=== PATIENT | male | born 1935 | race Caucasian/White ===

== ENCOUNTER 2021-08-11 17:31 | Inpatient (IN) | payer MEDICARE, OTHER ==
[2021-08-11 20:30] VITALS: BMI 45.1
[2021-08-11] MEDS ORDERED: HYDROcodone/Acetaminophen 7.5/325 mg Tablet PO PRN (22:19)
[2021-08-11] MEDS ORDERED: HYDROcodone/Acetaminophen 5/325 mg Tablet PO PRN (22:19)
[2021-08-11] MEDS ORDERED: Ondansetron PF 4 MG/2 ML Vial IVP PRN (22:19)
[2021-08-11] MEDS ORDERED: Acetaminophen 325 MG TAB PO PRN (22:19)
[2021-08-11] MEDS ORDERED: FLU VACC QS2021-22(65YR UP)/PF 240 MCG/0.7 ML SYRINGE IM ONE (22:45)
[2021-08-11 23:28] LABS: Band 1 % (5-11); Eosinophils 1 % (0-10); Hemoglobin 16.1 g/dL (14.0-18.0); Lymphocytes 10 % (21-51); MDiff Complete? YES; Mean Corpuscular HGB CONC 32.8 g/dL (32.0-36.0); Mean Corpuscular Hemoglobin 29.6 pg (27.0-31.0); Mean Corpuscular Volume 90.2 fL (78.0-98.0); Mean Platelet Volume 8.4 fL (7.4-10.4); Monocytes 5 % (0-10); Neutrophil 82 % (42-75); Platelet Count 256 thou/uL (130-400); Platelet Morphology Comment Appears Adequate; RBC Distribution Width 13.9 % (11.5-14.5); RBC Morphology Normal; Reactive Lymphocytes 1 % (0-10); Red Blood Cell (RBC) Count 5.44 mill/uL (4.70-6.10); White Blood Cell (WBC) Count 20.3 thou/uL (4.8-10.8)
[2021-08-11 23:29] LABS: AST (SGOT) 34 U/L (5-34); Albumin 2.6 g/dL (3.4-4.8); Anion Gap 18 mmol/L (10-20); BUN (Urea Nitrogen) 52 mg/dL (8.4-25.7); Bilirubin, Total 1.4 mg/dL (0.2-1.2); Calc. Creatinine Clearance 51 mL/min (70-130); Calcium 8.3 mg/dL (7.8-10.44); Carbon Dioxide 22 mmol/L (23-31); Chloride 102 mmol/L (98-107); Globulin 3.7 g/dL (2.4-3.5); Glucose 178 mg/dL (83-110); Potassium 4.1 mmol/L (3.5-5.1); Protein, Total 6.3 g/dL (5.8-8.1); Sodium 138 mmol/L (136-145)
[2021-08-11 23:37] LABS: Alkaline Phosphatase 99 U/L (40-110)
[2021-08-11 23:40] LABS: ALT (SGPT) 23 U/L (8-55)
[2021-08-12] MEDS ORDERED: hydrOXYzine 25 MG TAB PO PRN (02:23)
[2021-08-12] MEDS ORDERED: Furosemide 20 MG/2 ML VIAL SLOW IVP SCH (02:30)
[2021-08-12] MEDS ORDERED: Dextrose 5% in Water 1,000 ML IV PRN (02:33)
[2021-08-12] MEDS ORDERED: Dextrose 50% Abboject 50 ML SYRINGE SLOW IVP PRN (02:33)
[2021-08-12] MEDS ORDERED: HumaLOG 300 UNITS/3 ML VIAL SC PRN (02:33)
[2021-08-12] MEDS ORDERED: Vancomycin 1.5 GRAM/300 ML BAG 1.5 GM in Premix Bag 1 BAG IVPB SCH (03:00)
[2021-08-12] MEDS: Cefepime 2 GM in Sodium Chloride 0.9% 100 ML IVPB SCH ×2 (04:54→17:16)
[2021-08-12 05:01] LABS: #Eosinphils 0.1 thou/uL (0.0-0.7); #Lymphocytes 1.6 thou/uL (1.20-3.40); #Monocytes 1.3 thou/uL (0.11-0.59); #Neutrophils 15.2 thou/uL (1.40-6.50); %Basophils 0.3 % (0.0-1.0); %Eosinophils 0.8 % (0.0-10.0); %Lymphocytes 8.7 % (21.0-51.0); %Monocytes 7.2 % (0.0-10.0); Hemoglobin 14.9 g/dL (14.0-18.0); Mean Corpuscular HGB CONC 31.9 g/dL (32.0-36.0); Mean Corpuscular Hemoglobin 28.9 pg (27.0-31.0); Mean Corpuscular Volume 90.8 fL (78.0-98.0); Mean Platelet Volume 8.4 fL (7.4-10.4); Platelet Count 269 thou/uL (130-400); Red Blood Cell (RBC) Count 5.15 mill/uL (4.70-6.10); White Blood Cell (WBC) Count 18.3 thou/uL (4.8-10.8)
[2021-08-12 05:26] LABS: Hemoglobin A1c 8.2 % (4.0-6.0)
[2021-08-12 05:33] LABS: ALT (SGPT) 21 U/L (8-55); AST (SGOT) 27 U/L (5-34); Albumin 2.6 g/dL (3.4-4.8); Alkaline Phosphatase 86 U/L (40-110); Anion Gap 16 mmol/L (10-20); BUN (Urea Nitrogen) 54 mg/dL (8.4-25.7); Bilirubin, Total 1.4 mg/dL (0.2-1.2); Calc. Creatinine Clearance 53 mL/min (70-130); Calcium 8.4 mg/dL (7.8-10.44); Carbon Dioxide 25 mmol/L (23-31); Cardiac Risk 6.9 (Less than 4.5); Chloride 102 mmol/L (98-107); Cholesterol 124 mg/dl (< 200 Desired); Globulin 3.2 g/dL (2.4-3.5); Glucose 155 mg/dL (83-110); HDL Cholesterol 18 mg/dL (>60 Neg Risk); LDL Cholesterol, Calculated 77 mg/dL; Potassium 3.7 mmol/L (3.5-5.1); Protein, Total 5.8 g/dL (5.8-8.1); Sodium 139 mmol/L (136-145); Triglycerides 146 mg/dL (Less than 150)
[2021-08-12] MEDS ORDERED: Famotidine/PF 20 mg/2ml Vial SLOW IVP SCH (09:00)
[2021-08-12] MEDS: Heparin 5,000 UNITS/ML VIAL SC SCH ×2 (10:23→20:13)
[2021-08-12] MEDS: Potassium Chloride 20 MEQ TAB PO SCH (10:24)
[2021-08-12] MEDS: Furosemide 20 MG TAB PO SCH (10:24)
[2021-08-12] MEDS: Ascorbic Acid 500 mg Chewable Tablet PO SCH (10:24)
[2021-08-12] MEDS: Aspirin Chewable 81 MG TAB PO SCH (10:24)
[2021-08-12] MEDS: Famotidine/PF 20 mg/2ml Vial SLOW IVP SCH (10:24)
[2021-08-12] MEDS: Boudreaux's Butt Paste 60 GM TUBE TOP SCH ×4 (10:25→20:18)
[2021-08-12 12:12] LABS: SARS-CoV-2 PCR by NAA Not Detected (NotDetected)
[2021-08-13] MEDS ORDERED: Vancomycin 1 GM in Premix Bag 1 BAG IVPB SCH (03:00)
[2021-08-13] MEDS: Cefepime 2 GM in Sodium Chloride 0.9% 100 ML IVPB SCH ×2 (04:08→17:19)
[2021-08-13 04:53] LABS: #Eosinphils 0.4 thou/uL (0.0-0.7); #Lymphocytes 1.7 thou/uL (1.20-3.40); #Monocytes 1.1 thou/uL (0.11-0.59); #Neutrophils 13.2 thou/uL (1.40-6.50); %Basophils 0.2 % (0.0-1.0); %Eosinophils 2.6 % (0.0-10.0); %Lymphocytes 10.3 % (21.0-51.0); %Monocytes 6.9 % (0.0-10.0); %Neutrophils 79.9 % (42.0-75.0); Hemoglobin 14.3 g/dL (14.0-18.0); Mean Corpuscular HGB CONC 31.6 g/dL (32.0-36.0); Mean Corpuscular Hemoglobin 28.7 pg (27.0-31.0); Mean Corpuscular Volume 90.9 fL (78.0-98.0); Mean Platelet Volume 8.2 fL (7.4-10.4); Platelet Count 265 thou/uL (130-400); RBC Distribution Width 13.8 % (11.5-14.5); Red Blood Cell (RBC) Count 4.97 mill/uL (4.70-6.10); White Blood Cell (WBC) Count 16.5 thou/uL (4.8-10.8)
[2021-08-13 05:15] LABS: Vancomycin, Random 12.8 ug/mL (See Comment)
[2021-08-13 05:20] LABS: ALT (SGPT) 18 U/L (8-55); AST (SGOT) 26 U/L (5-34); Albumin 2.6 g/dL (3.4-4.8); Alkaline Phosphatase 87 U/L (40-110); Anion Gap 16 mmol/L (10-20); BUN (Urea Nitrogen) 55 mg/dL (8.4-25.7); Bilirubin, Total 0.9 mg/dL (0.2-1.2); Calc. Creatinine Clearance 55 mL/min (70-130); Calcium 8.4 mg/dL (7.8-10.44); Carbon Dioxide 24 mmol/L (23-31); Chloride 102 mmol/L (98-107); Globulin 3.2 g/dL (2.4-3.5); Glucose 136 mg/dL (83-110); Potassium 3.7 mmol/L (3.5-5.1); Protein, Total 5.8 g/dL (5.8-8.1); Sodium 138 mmol/L (136-145)
[2021-08-13] MEDS: Heparin 5,000 UNITS/ML VIAL SC SCH ×2 (09:29→20:42)
[2021-08-13] MEDS: Aspirin Chewable 81 MG TAB PO SCH (09:29)
[2021-08-13] MEDS: Famotidine/PF 20 mg/2ml Vial SLOW IVP SCH (09:29)
[2021-08-13] MEDS: Ascorbic Acid 500 mg Chewable Tablet PO SCH (09:29)
[2021-08-13] MEDS: Furosemide 20 MG TAB PO SCH (09:29)
[2021-08-13] MEDS: Potassium Chloride 20 MEQ TAB PO SCH (09:29)
[2021-08-13] MEDS: Boudreaux's Butt Paste 60 GM TUBE TOP SCH ×4 (09:29→20:42)
[2021-08-13] MEDS ORDERED: VANCOMYCIN 1.25 GM/250 ML BAG 1.25 GM in Premix Bag 1 BAG IVPB SCH (12:00)
[2021-08-14] MEDS: Cefepime 2 GM in Sodium Chloride 0.9% 100 ML IVPB SCH ×3 (04:05→16:56)
[2021-08-14 05:08] LABS: #Basophils 0.1 thou/uL (0.0-0.2); #Eosinphils 0.5 thou/uL (0.0-0.7); #Lymphocytes 1.6 thou/uL (1.20-3.40); #Monocytes 0.9 thou/uL (0.11-0.59); #Neutrophils 10.6 thou/uL (1.40-6.50); %Basophils 0.4 % (0.0-1.0); %Eosinophils 3.6 % (0.0-10.0); %Lymphocytes 11.5 % (21.0-51.0); %Monocytes 6.8 % (0.0-10.0); %Neutrophils 77.7 % (42.0-75.0); Hemoglobin 13.7 g/dL (14.0-18.0); Mean Corpuscular HGB CONC 31.7 g/dL (32.0-36.0); Mean Corpuscular Hemoglobin 28.6 pg (27.0-31.0); Mean Corpuscular Volume 90.3 fL (78.0-98.0); Mean Platelet Volume 8.1 fL (7.4-10.4); Platelet Count 266 thou/uL (130-400); RBC Distribution Width 13.8 % (11.5-14.5); Red Blood Cell (RBC) Count 4.77 mill/uL (4.70-6.10); White Blood Cell (WBC) Count 13.6 thou/uL (4.8-10.8)
[2021-08-14 05:26] LABS: Anion Gap 13 mmol/L (10-20); BUN (Urea Nitrogen) 48 mg/dL (8.4-25.7); Calc. Creatinine Clearance 64 mL/min (70-130); Calcium 8.1 mg/dL (7.8-10.44); Carbon Dioxide 24 mmol/L (23-31); Chloride 109 mmol/L (98-107); Glucose 139 mg/dL (83-110); Potassium 3.1 mmol/L (3.5-5.1); Sodium 143 mmol/L (136-145)
[2021-08-14] MEDS: Boudreaux's Butt Paste 60 GM TUBE TOP SCH ×4 (08:00→20:33)
[2021-08-14] MEDS: Potassium Chloride 20 MEQ TAB PO SCH (09:59)
[2021-08-14] MEDS: Aspirin Chewable 81 MG TAB PO SCH (09:59)
[2021-08-14] MEDS: Ascorbic Acid 500 mg Chewable Tablet PO SCH (09:59)
[2021-08-14] MEDS: Furosemide 20 MG TAB PO SCH (09:59)
[2021-08-14] MEDS: Heparin 5,000 UNITS/ML VIAL SC SCH ×2 (09:59→20:33)
[2021-08-14] MEDS: Famotidine/PF 20 mg/2ml Vial SLOW IVP SCH (09:59)
[2021-08-14 12:34] LABS: Vancomycin, Random 14.8 ug/mL (See Comment)
[2021-08-14] MEDS ORDERED: Vancomycin 1 GM in Premix Bag 1 BAG IVPB SCH ×2 (15:30→18:00)
[2021-08-15 04:49] LABS: #Eosinphils 0.5 thou/uL (0.0-0.7); #Lymphocytes 1.6 thou/uL (1.20-3.40); #Monocytes 0.9 thou/uL (0.11-0.59); #Neutrophils 8.2 thou/uL (1.40-6.50); %Basophils 0.3 % (0.0-1.0); %Eosinophils 4.5 % (0.0-10.0); %Monocytes 8.2 % (0.0-10.0); %Neutrophils 72.9 % (42.0-75.0); Mean Corpuscular HGB CONC 33.3 g/dL (32.0-36.0); Mean Corpuscular Volume 90.1 fL (78.0-98.0); Mean Platelet Volume 8.1 fL (7.4-10.4); Platelet Count 318 thou/uL (130-400); RBC Distribution Width 13.8 % (11.5-14.5); Red Blood Cell (RBC) Count 5.02 mill/uL (4.70-6.10); White Blood Cell (WBC) Count 11.2 thou/uL (4.8-10.8)
[2021-08-15] MEDS: Cefepime 2 GM in Sodium Chloride 0.9% 100 ML IVPB SCH ×2 (05:00→17:05)
[2021-08-15 05:06] LABS: Anion Gap 14 mmol/L (10-20); BUN (Urea Nitrogen) 41 mg/dL (8.4-25.7); Calc. Creatinine Clearance 72 mL/min (70-130); Calcium 8.7 mg/dL (7.8-10.44); Carbon Dioxide 23 mmol/L (23-31); Chloride 109 mmol/L (98-107); Glucose 132 mg/dL (83-110); Sodium 143 mmol/L (136-145)
[2021-08-15 05:10] LABS: Potassium 2.9 mmol/L (3.5-5.1)
[2021-08-15] MEDS ORDERED: Potassium Chloride 20 MEQ TAB PO SCH ×2 (05:30→19:30)
[2021-08-15 05:44] LABS: Magnesium 1.9 mg/dL (1.6-2.6)
[2021-08-15] MEDS ORDERED: Electrolyte Replacement Protocol 1 EACH FS SCH (08:00)
[2021-08-15] MEDS ORDERED: Magnesium 2 GM/50 ML 2 GM in Premix Bag 1 BAG IVPB SCH (08:15)
[2021-08-15] MEDS: Aspirin Chewable 81 MG TAB PO SCH (09:33)
[2021-08-15] MEDS: Ascorbic Acid 500 mg Chewable Tablet PO SCH (09:33)
[2021-08-15] MEDS: Furosemide 20 MG TAB PO SCH (09:33)
[2021-08-15] MEDS: Potassium Chloride 20 MEQ TAB PO SCH (09:33)
[2021-08-15] MEDS: Famotidine/PF 20 mg/2ml Vial SLOW IVP SCH (09:33)
[2021-08-15] MEDS: Heparin 5,000 UNITS/ML VIAL SC SCH (09:33)
[2021-08-15] MEDS: Boudreaux's Butt Paste 60 GM TUBE TOP SCH ×4 (09:34→20:34)
[2021-08-15] MEDS: HumaLOG 300 UNITS/3 ML VIAL SC PRN (13:31)
[2021-08-15] MEDS ORDERED: Vancomycin 1 GM in Premix Bag 1 BAG IVPB SCH (15:00)
[2021-08-15 16:56] LABS: Potassium 3.3 mmol/L (3.5-5.1)
[2021-08-15] MEDS: Vancomycin 1 GM in Premix Bag 1 BAG IVPB SCH (17:47)
[2021-08-15] MEDS: Enoxaparin Sodium 40 MG/0.4 ML SYRINGE SC SCH (20:32)
[2021-08-16] MEDS: Cefepime 2 GM in Sodium Chloride 0.9% 100 ML IVPB SCH ×2 (05:29→16:40)
[2021-08-16 05:36] LABS: #Eosinphils 0.5 thou/uL (0.0-0.7); #Lymphocytes 1.7 thou/uL (1.20-3.40); #Monocytes 0.9 thou/uL (0.11-0.59); #Neutrophils 7.8 thou/uL (1.40-6.50); %Basophils 0.1 % (0.0-1.0); %Eosinophils 4.5 % (0.0-10.0); %Lymphocytes 15.3 % (21.0-51.0); %Monocytes 7.9 % (0.0-10.0); %Neutrophils 72.2 % (42.0-75.0); Hemoglobin 14.9 g/dL (14.0-18.0); Mean Corpuscular HGB CONC 31.4 g/dL (32.0-36.0); Mean Corpuscular Hemoglobin 28.5 pg (27.0-31.0); Mean Corpuscular Volume 90.7 fL (78.0-98.0); Mean Platelet Volume 8.1 fL (7.4-10.4); Platelet Count 320 thou/uL (130-400); RBC Distribution Width 14.2 % (11.5-14.5); Red Blood Cell (RBC) Count 5.25 mill/uL (4.70-6.10); White Blood Cell (WBC) Count 10.8 thou/uL (4.8-10.8)
[2021-08-16 05:50] LABS: Phosphorus 2.8 mg/dL (2.3-4.7)
[2021-08-16 05:53] LABS: Anion Gap 16 mmol/L (10-20); BUN (Urea Nitrogen) 36 mg/dL (8.4-25.7); Calc. Creatinine Clearance 74 mL/min (70-130); Calcium 8.2 mg/dL (7.8-10.44); Carbon Dioxide 21 mmol/L (23-31); Chloride 111 mmol/L (98-107); Glucose 130 mg/dL (83-110); Magnesium 2.1 mg/dL (1.6-2.6); Potassium 3.5 mmol/L (3.5-5.1); Sodium 144 mmol/L (136-145)
[2021-08-16] MEDS ORDERED: Potassium Chloride 20 MEQ TAB PO SCH (06:30)
[2021-08-16] MEDS ORDERED: Furosemide 40 MG TAB PO SCH (07:30)
[2021-08-16] MEDS: Ascorbic Acid 500 mg Chewable Tablet PO SCH (09:56)
[2021-08-16] MEDS: Aspirin Chewable 81 MG TAB PO SCH (09:56)
[2021-08-16] MEDS: Potassium Chloride 20 MEQ TAB PO SCH (09:56)
[2021-08-16] MEDS: Furosemide 20 MG TAB PO SCH (09:56)
[2021-08-16] MEDS: Boudreaux's Butt Paste 60 GM TUBE TOP SCH ×4 (09:57→23:27)
[2021-08-16 17:38] LABS: Vancomycin, Trough 16.6 ug/mL
[2021-08-16] MEDS: Vancomycin 1 GM in Premix Bag 1 BAG IVPB SCH ×2 (18:19→19:14)
[2021-08-16] MEDS: HumaLOG 300 UNITS/3 ML VIAL SC PRN (18:22)
[2021-08-16] MEDS: Enoxaparin Sodium 40 MG/0.4 ML SYRINGE SC SCH (23:26)
[2021-08-17] MEDS: Cefepime 2 GM in Sodium Chloride 0.9% 100 ML IVPB SCH (05:20)
[2021-08-17] MEDS: Ascorbic Acid 500 mg Chewable Tablet PO SCH (08:03)
[2021-08-17] MEDS: Potassium Chloride 20 MEQ TAB PO SCH (08:03)
[2021-08-17] MEDS: Aspirin Chewable 81 MG TAB PO SCH (08:03)
[2021-08-17] MEDS: Furosemide 20 MG TAB PO SCH (08:03)
[2021-08-17] MEDS: Boudreaux's Butt Paste 60 GM TUBE TOP SCH ×2 (08:03→14:50)
[2021-08-17] MEDS: HumaLOG 300 UNITS/3 ML VIAL SC PRN (12:06)
[2021-08-17 15:24] VITALS: BP 119/76; TEMP 97.7
== END 2021-08-17 16:46 | disposition home health service (06) | DRG 872 ==
LOC: 2NO 17:31
PROVIDERS: ADMIT Internal Medicine; ATTEND Internal Medicine
DX: A41.9 Sepsis, unspecified organism (principal); L03.311 Cellulitis of abdominal wall; N39.0 Urinary tract infection, site not specified; N17.9 Acute kidney failure, unspecified; I50.32 Chronic diastolic (congestive) heart failure; Z68.42 Body mass index [BMI] 45.0-49.9, adult; R18.8 Other ascites; I13.0 Hypertensive heart and chronic kidney disease with heart failure and stage 1 through stage 4 chronic kidney disease, or unspecified chronic kidney disease; I48.20 Chronic atrial fibrillation, unspecified; R65.20 Severe sepsis without septic shock; E11.22 Type 2 diabetes mellitus with diabetic chronic kidney disease; K43.2 Incisional hernia without obstruction or gangrene; E66.01 Morbid (severe) obesity due to excess calories; I25.5 Ischemic cardiomyopathy; E11.65 Type 2 diabetes mellitus with hyperglycemia; I25.10 Atherosclerotic heart disease of native coronary artery without angina pectoris; K59.00 Constipation, unspecified; I07.1 Rheumatic tricuspid insufficiency; Z20.822 Contact with and (suspected) exposure to COVID-19; N18.30 Chronic kidney disease, stage 3 unspecified; E78.5 Hyperlipidemia, unspecified; E87.6 Hypokalemia; E83.42 Hypomagnesemia; Z86.73 Personal history of transient ischemic attack (TIA), and cerebral infarction without residual deficits
CPT/HCPCS: 36415; 36416; 71045; 74018; 76705; 80048; 80053; 80061; 80202; 83036; 83605; 83735; 84100; 85025; 87040; 87324; 87449; 93306; J0692; J1644; J1650; J1815; J3370; J3475; J3490; S0028; U0003; U0005

== ENCOUNTER 2021-08-22 10:32 | Inpatient (IN) | payer MEDICARE, OTHER ==
[2021-08-22 11:33] LABS: Mean Corpuscular HGB CONC 32.6 g/dL (32.0-36.0); Mean Corpuscular Hemoglobin 29.4 pg (27.0-31.0); Mean Corpuscular Volume 90.3 fL (78.0-98.0); RBC Distribution Width 15.6 % (11.5-14.5)
[2021-08-22 11:50] LABS: Actual Bicarbonate (HCO3a) 13.2 mEq/L (22-28); Analyzer IN Cardio ER; Base Excess (BEa) -10.2 mEq/L (-2.0 to +3.0); Carboxyhemoglobin (COHb) 0.4 gm% (0.0-3.0); Hemoglobin (Hb) 13.1 g/dL (14.0-18.0); Potassium - ABG Lab 2.88 mmol/L (3.70-5.30); pH, Arterial 7.37 (7.35-7.45)
[2021-08-22 11:54] LABS: ALV-art Gradient 141.055 mmHg (0-20); CO2 Tension 23.7 mmHg (35.0-45.0); Puncture Site RRA
[2021-08-22 11:55] LABS: Anisocytosis SLIGHT = 6-15 cells (100X) (0-5/hpf); Band 17 % (5-11); Lymphocytes 6 % (21-51); MDiff Complete? YES; Mean Platelet Volume 10.2 fL (7.4-10.4); Monocytes 4 % (0-10); Neutrophil 73 % (42-75); Platelet Count 285 thou/uL (130-400); Platelet Morphology Comment Appears Adequate; White Blood Cell (WBC) Count 18.3 thou/uL (4.8-10.8)
[2021-08-22 12:14] LABS: CKMB 1.4 ng/mL (0-6.6)
[2021-08-22] MEDS ORDERED: Cefepime 2 GM VIAL ONE (12:28)
[2021-08-22] MEDS ORDERED: VANCOMYCIN 2 GRAM/400 ML BAG 2 GM in Premix Bag 1 BAG IVPB SCH (13:00)
[2021-08-22] MEDS ORDERED: Ondansetron PF 4 MG/2 ML Vial IVP PRN (15:21)
[2021-08-22] MEDS ORDERED: Guaifenesin DM 100-10/5 ML UDCUP PO PRN (15:21)
[2021-08-22] MEDS ORDERED: Dextrose 50% Abboject 50 ML SYRINGE SLOW IVP PRN (15:21)
[2021-08-22] MEDS ORDERED: Dextrose 5% in Water 1,000 ML IV PRN (15:21)
[2021-08-22] MEDS ORDERED: Acetaminophen 325 MG TAB PO PRN (15:21)
[2021-08-22 15:24] LABS: Lactic Acid 4.4 mmol/L (0.5-2.2)
[2021-08-22 15:45] LABS: Bilirubin Negative (Negative); Blood, Urine Negative (Negative); Clarity Clear (Clear); Glucose, Urine (Dipstick) Normal (Negative); Ketone, Urine Negative (Negative); Leukocyte 25 Leu/uL (Negative); Nitrite Negative (Negative); Protein, Urine (Dipstick) 30 mg/dL (Neg-Trace); RBC/HPF 0-3 HPF (0-3); Specific Gravity, Urine 1.022 (1.002-1.036); Squamous Epithelial 0-3 HPF (0-3); Urobilinogen Normal mg/dL (Less than 2); WBC/HPF 0-3 HPF (0-3)
[2021-08-22] MEDS ORDERED: Sodium Chloride 0.9% 1,000 ML IV SCH (15:45)
[2021-08-22 15:46] LABS: Bacteria/HPF Rare-Few HPF (None Seen)
[2021-08-22 15:54] LABS: Troponin I 0.085 ng/mL (< 0.028)
[2021-08-22 16:23] LABS: Albumin 2.3 g/dL (3.4-4.8)
[2021-08-22 16:24] LABS: Chloride 111 mmol/L (98-107); Sodium 142 mmol/L (136-145)
[2021-08-22 16:25] LABS: Calcium 7.6 mg/dL (7.8-10.44); Glucose 174 mg/dL (83-110)
[2021-08-22 16:26] LABS: Globulin 3.2 g/dL (2.4-3.5); Protein, Total 5.5 g/dL (5.8-8.1)
[2021-08-22 16:27] LABS: Anion Gap 21 mmol/L (10-20); Bilirubin, Total 1.1 mg/dL (0.2-1.2); Carbon Dioxide 13 mmol/L (23-31)
[2021-08-22 16:28] LABS: Alkaline Phosphatase 99 U/L (40-110)
[2021-08-22 16:29] LABS: Calc. Creatinine Clearance 0 mL/min (70-130)
[2021-08-22 16:30] LABS: AST (SGOT) 128 U/L (5-34); BUN (Urea Nitrogen) 90 mg/dL (8.4-25.7)
[2021-08-22 16:31] LABS: ALT (SGPT) 99 U/L (8-55); Lipase 8 U/L (8-78)
[2021-08-22] MEDS ORDERED: Norepinephrine 8 MG/0.9% NS 250 ML ONE (16:44)
[2021-08-22 18:22] LABS: Troponin I 0.116 ng/mL (< 0.028)
[2021-08-22 18:34] LABS: SARS-CoV-2 NAA Rapid Test Not Detected (NotDetected)
[2021-08-22 21:11] LABS: Lactic Acid 5.6 mmol/L (0.5-2.2)
[2021-08-22] MEDS: Sodium Chloride 0.9% 1,000 ML IV SCH (22:13)
[2021-08-22] MEDS: HumaLOG 300 UNITS/3 ML VIAL SC PRN (22:13)
[2021-08-22 23:06] LABS: Bilirubin Negative (Negative); Blood, Urine 3+ (Negative); Clarity Extra Turbid (Clear); Glucose, Urine (Dipstick) Normal (Negative); Ketone, Urine Negative (Negative); Leukocyte 250 Leu/uL (Negative); Nitrite Negative (Negative); Protein, Urine (Dipstick) 100 mg/dL (Neg-Trace); RBC/HPF Greater than 50 HPF (0-3); Specific Gravity, Urine 1.024 (1.002-1.036); Squamous Epithelial 0-3 HPF (0-3); Urobilinogen Normal mg/dL (Less than 2); pH, Urine 5.5 (5.0-9.0)
[2021-08-22 23:13] LABS: Renal Epithelial 0-3 HPF (None Seen)
[2021-08-22 23:17] LABS: Bacteria/HPF 2+ HPF (None Seen)
[2021-08-23] MEDS: Norepinephrine 8 MG/0.9% NS 250 ML IVPB SCH ×3 (01:51→13:37)
[2021-08-23 04:29] LABS: Anion Gap 26 mmol/L (10-20); BUN (Urea Nitrogen) 100 mg/dL (8.4-25.7); Calc. Creatinine Clearance 31 mL/min (70-130); Calcium 7.4 mg/dL (7.8-10.44); Chloride 114 mmol/L (98-107); Glucose 166 mg/dL (83-110); Potassium 3.7 mmol/L (3.5-5.1); Sodium 144 mmol/L (136-145)
[2021-08-23 04:34] LABS: Carbon Dioxide 8 mmol/L (23-31)
[2021-08-23 04:44] LABS: Band 41 % (5-11); Burr Cells SLIGHT = 2-5 cells (100X) (0-1/hpf); Hemoglobin 12.7 g/dL (14.0-18.0); Lymphocytes 3 % (21-51); MDiff Complete? YES; Mean Corpuscular HGB CONC 32.2 g/dL (32.0-36.0); Mean Corpuscular Hemoglobin 29.5 pg (27.0-31.0); Mean Corpuscular Volume 91.6 fL (78.0-98.0); Mean Platelet Volume 8.2 fL (7.4-10.4); Metamyelocyte 6 % (0-0); Monocytes 2 % (0-10); Neutrophil 48 % (42-75); Nucleated RBC 1 % (0); Platelet Count 386 thou/uL (130-400); Platelet Morphology Comment Appears Adequate; Polychromasia SLIGHT = 2-3 cells (100X) (0-2/hpf); RBC Distribution Width 15.5 % (11.5-14.5); Red Blood Cell (RBC) Count 4.31 mill/uL (4.70-6.10); White Blood Cell (WBC) Count 33.7 thou/uL (4.8-10.8)
[2021-08-23] MEDS ORDERED: Sodium Bicarb 50 MEQ/50 ML Abboject 8.4% SYRINGE IVP SCH (05:00)
[2021-08-23] MEDS ORDERED: MEROPENEM 1 GM/50 ML 1 GM in Premix Bag 1 BAG IVPB SCH (05:30)
[2021-08-23] MEDS: Sodium Bicarbonate 150 MEQ in Dextrose 5% in Water 1,000 ML IV SCH ×3 (05:37→20:22)
[2021-08-23] MEDS: Sodium Chloride 0.9% 1,000 ML IV SCH (07:29)
[2021-08-23] MEDS: Aspirin Chewable 81 MG TAB PO SCH (08:57)
[2021-08-23] MEDS ORDERED: Enoxaparin Sodium 40 MG/0.4 ML SYRINGE SC SCH (09:00)
[2021-08-23] MEDS ORDERED: Hydrocortisone Sod Succ/PF 250 mg/2 ml Vial SLOW IVP SCH (10:00)
[2021-08-23] MEDS ORDERED: Hydrocortisone Sod Succ/PF 100 mg/2 ml Vial IVP SCH (10:45)
[2021-08-23 11:36] LABS: Lactic Acid 4.3 mmol/L (0.5-2.2)
[2021-08-23] MEDS: Vasopressin 20 UNIT, Admixture Fee 1 EACH in Sodium Chloride 0.9% 50 ML IV SCH ×2 (11:52→17:43)
[2021-08-23] MEDS ORDERED: Cefepime 1 GM in Sodium Chloride 0.9% 100 ML IVPB SCH (12:00)
[2021-08-23] MEDS: Meropenem 500 MG in Sodium Chloride 0.9% 100 ML IVPB SCH (13:37)
[2021-08-23] MEDS: Hydrocortisone Sod Succ/PF 100 mg/2 ml Vial IVP SCH ×2 (17:10→22:13)
[2021-08-23] MEDS: Heparin 5,000 UNITS/ML VIAL SC SCH (20:24)
[2021-08-23] MEDS: HumaLOG 300 UNITS/3 ML VIAL SC PRN (22:35)
[2021-08-24] MEDS: HumaLOG 300 UNITS/3 ML VIAL SC PRN ×6 (00:08→23:56)
[2021-08-24] MEDS: Norepinephrine 8 MG/0.9% NS 250 ML IVPB SCH (00:46)
[2021-08-24] MEDS: Vasopressin 20 UNIT, Admixture Fee 1 EACH in Sodium Chloride 0.9% 50 ML IV SCH (00:48)
[2021-08-24] MEDS: Meropenem 500 MG in Sodium Chloride 0.9% 100 ML IVPB SCH ×2 (01:51→12:48)
[2021-08-24] MEDS: Hydrocortisone Sod Succ/PF 100 mg/2 ml Vial IVP SCH ×4 (03:47→21:31)
[2021-08-24] MEDS: Sodium Bicarbonate 150 MEQ in Dextrose 5% in Water 1,000 ML IV SCH ×3 (03:51→19:31)
[2021-08-24 04:33] LABS: ALT (SGPT) 56 U/L (8-55); AST (SGOT) 32 U/L (5-34); Albumin 2.1 g/dL (3.4-4.8); Alkaline Phosphatase 113 U/L (40-110); Anion Gap 22 mmol/L (10-20); BUN (Urea Nitrogen) 112 mg/dL (8.4-25.7); Band 27 % (5-11); Bilirubin, Total 1.1 mg/dL (0.2-1.2); Calc. Creatinine Clearance 32 mL/min (70-130); Calcium 7.1 mg/dL (7.8-10.44); Carbon Dioxide 22 mmol/L (23-31); Chloride 107 mmol/L (98-107); Globulin 2.6 g/dL (2.4-3.5); Glucose 354 mg/dL (83-110); Hemoglobin 11.6 g/dL (14.0-18.0); Hypochromia SLIGHT = 6-15 cells (100X) (0-5/hpf); Lymphocytes 3 % (21-51); MDiff Complete? YES; Mean Corpuscular HGB CONC 32.7 g/dL (32.0-36.0); Mean Corpuscular Hemoglobin 29.5 pg (27.0-31.0); Mean Corpuscular Volume 90.3 fL (78.0-98.0); Mean Platelet Volume 8.4 fL (7.4-10.4); Metamyelocyte 1 % (0-0); Monocytes 5 % (0-10); Neutrophil 64 % (42-75); Platelet Count 284 thou/uL (130-400); Platelet Morphology Comment Appears Adequate; Protein, Total 4.7 g/dL (5.8-8.1); RBC Distribution Width 15.3 % (11.5-14.5); Red Blood Cell (RBC) Count 3.93 mill/uL (4.70-6.10); Sodium 148 mmol/L (136-145); White Blood Cell (WBC) Count 23.9 thou/uL (4.8-10.8)
[2021-08-24 04:50] LABS: Potassium 2.8 mmol/L (3.5-5.1)
[2021-08-24] MEDS ORDERED: Potassium Chloride 40 MEQ in Premix Bag 1 BAG IVPB SCH ×2 (05:30→13:00)
[2021-08-24] MEDS: Aspirin Chewable 81 MG TAB PO SCH (07:25)
[2021-08-24 07:26] LABS: Magnesium 1.8 mg/dL (1.6-2.6)
[2021-08-24] MEDS: Heparin 5,000 UNITS/ML VIAL SC SCH ×2 (07:27→20:42)
[2021-08-24] MEDS: Albumin 25% 25 GM/100 ML BOT IVPB SCH ×3 (09:13→20:41)
[2021-08-24] MEDS ORDERED: Pantoprazole 40 MG VIAL IVP SCH (11:15)
[2021-08-24] MEDS ORDERED: Sodium Chloride 0.9% (PF) 10 ML VIAL FS PRN (11:15)
[2021-08-24] MEDS ORDERED: Magnesium 2 GM/50 ML 2 GM in Premix Bag 1 BAG IVPB SCH (11:30)
[2021-08-24] MEDS ORDERED: Magnesium Sulfate 2 GM in Sodium Chloride 0.9% 100 ML IVPB SCH (11:30)
[2021-08-24] MEDS ORDERED: Lantus 1000 UNITS/10 ML VIAL SC SCH (11:30)
[2021-08-24 11:54] LABS: Potassium 2.6 mmol/L (3.5-5.1)
[2021-08-24] MEDS ORDERED: Bacitracin 1 PK TOP PRN (12:26)
[2021-08-24] MEDS ORDERED: Electrolyte Replacement Protocol FS PRN (12:30)
[2021-08-24 12:38] LABS: Vancomycin, Random 23.2 ug/mL (See Comment)
[2021-08-24 17:51] LABS: Lactic Acid 3.4 mmol/L (0.5-2.2)
[2021-08-24 17:58] LABS: Troponin I 0.056 ng/mL (< 0.028)
[2021-08-25] MEDS: Hydrocortisone Sod Succ/PF 100 mg/2 ml Vial IVP SCH ×4 (02:54→21:24)
[2021-08-25] MEDS: Albumin 25% 25 GM/100 ML BOT IVPB SCH ×2 (03:00→07:18)
[2021-08-25] MEDS: Sodium Bicarbonate 150 MEQ in Dextrose 5% in Water 1,000 ML IV SCH (03:22)
[2021-08-25] MEDS: Meropenem 500 MG in Sodium Chloride 0.9% 100 ML IVPB SCH ×2 (03:58→12:46)
[2021-08-25 04:33] LABS: ALT (SGPT) 32 U/L (8-55); AST (SGOT) 27 U/L (5-34); Albumin 2.7 g/dL (3.4-4.8); Alkaline Phosphatase 98 U/L (40-110); Anion Gap 19 mmol/L (10-20); BUN (Urea Nitrogen) 114 mg/dL (8.4-25.7); Bilirubin, Total 1.1 mg/dL (0.2-1.2); Calc. Creatinine Clearance 36 mL/min (70-130); Calcium 7.2 mg/dL (7.8-10.44); Carbon Dioxide 31 mmol/L (23-31); Chloride 103 mmol/L (98-107); Glucose 223 mg/dL (83-110); Magnesium 2.3 mg/dL (1.6-2.6); Protein, Total 4.7 g/dL (5.8-8.1); Sodium 150 mmol/L (136-145)
[2021-08-25 04:36] LABS: Potassium 2.5 mmol/L (3.5-5.1)
[2021-08-25 04:58] LABS: Band 14 % (5-11); Hemoglobin 8.8 g/dL (14.0-18.0); Lymphocytes 8 % (21-51); MDiff Complete? YES; Mean Corpuscular HGB CONC 33.6 g/dL (32.0-36.0); Mean Corpuscular Hemoglobin 30.6 pg (27.0-31.0); Mean Corpuscular Volume 90.8 fL (78.0-98.0); Mean Platelet Volume 8.5 fL (7.4-10.4); Monocytes 5 % (0-10); Neutrophil 73 % (42-75); Platelet Count 154 thou/uL (130-400); Platelet Morphology Comment Appears Adequate; RBC Distribution Width 15.2 % (11.5-14.5); RBC Morphology Normal; Red Blood Cell (RBC) Count 2.89 mill/uL (4.70-6.10); White Blood Cell (WBC) Count 12.3 thou/uL (4.8-10.8)
[2021-08-25] MEDS ORDERED: Potassium Chloride 40 MEQ in Premix Bag 1 BAG IVPB SCH (05:30)
[2021-08-25] MEDS: HumaLOG 300 UNITS/3 ML VIAL SC PRN ×2 (05:36→07:18)
[2021-08-25] MEDS: Heparin 5,000 UNITS/ML VIAL SC SCH (07:17)
[2021-08-25] MEDS: Pantoprazole 40 MG VIAL IVP SCH (07:18)
[2021-08-25] MEDS: 1/2 NS w/KCL 20 mEq 1,000 ML IV SCH ×3 (07:45→23:32)
[2021-08-25] MEDS ORDERED: FLU VACC QS2021-22(65YR UP)/PF 240 MCG/0.7 ML SYRINGE IM ONE (09:00)
[2021-08-25] MEDS ORDERED: Lantus 1000 UNITS/10 ML VIAL SC SCH (09:00)
[2021-08-25 13:27] LABS: Vancomycin, Random 17.4 ug/mL (See Comment)
[2021-08-25] MEDS ORDERED: Vancomycin HCl 500 MG in Sodium Chloride 0.9% 100 ML IVPB SCH (14:45)
[2021-08-25] MEDS ORDERED: Sodium Chloride 0.9% 10 ML ONE (20:11)
[2021-08-25] MEDS: NPH, Human Insulin Isophane 300 UNIT/3 ML VIAL SC SCH (21:24)
[2021-08-26] MEDS: Meropenem 500 MG in Sodium Chloride 0.9% 100 ML IVPB SCH ×2 (01:37→13:47)
[2021-08-26] MEDS: Hydrocortisone Sod Succ/PF 100 mg/2 ml Vial IVP SCH ×4 (03:51→20:34)
[2021-08-26 04:33] LABS: Hemoglobin 9.5 g/dL (14.0-18.0); Mean Corpuscular HGB CONC 33.3 g/dL (32.0-36.0); Mean Corpuscular Hemoglobin 30.6 pg (27.0-31.0); Mean Corpuscular Volume 92.1 fL (78.0-98.0); Platelet Count 112 thou/uL (130-400); RBC Distribution Width 14.8 % (11.5-14.5); Red Blood Cell (RBC) Count 3.09 mill/uL (4.70-6.10); White Blood Cell (WBC) Count 12.1 thou/uL (4.8-10.8)
[2021-08-26 04:34] LABS: Band 13 % (5-11); Hypochromia SLIGHT = 6-15 cells (100X) (0-5/hpf); Lymphocytes 3 % (21-51); MDiff Complete? YES; Monocytes 12 % (0-10); Neutrophil 72 % (42-75); Platelet Morphology Comment Appears Decreased
[2021-08-26 04:39] LABS: ALT (SGPT) 30 U/L (8-55); AST (SGOT) 34 U/L (5-34); Albumin 2.8 g/dL (3.4-4.8); Alkaline Phosphatase 170 U/L (40-110); Anion Gap 17 mmol/L (10-20); BUN (Urea Nitrogen) 105 mg/dL (8.4-25.7); Calc. Creatinine Clearance 43 mL/min (70-130); Calcium 7.6 mg/dL (7.8-10.44); Carbon Dioxide 32 mmol/L (23-31); Chloride 107 mmol/L (98-107); Globulin 2.2 g/dL (2.4-3.5); Glucose 106 mg/dL (83-110); Magnesium 2.3 mg/dL (1.6-2.6); Sodium 153 mmol/L (136-145)
[2021-08-26 05:16] LABS: Potassium 2.8 mmol/L (3.5-5.1)
[2021-08-26] MEDS ORDERED: Potassium Chloride 40 MEQ in Premix Bag 1 BAG IVPB SCH (06:00)
[2021-08-26] MEDS: NPH, Human Insulin Isophane 300 UNIT/3 ML VIAL SC SCH ×2 (09:07→20:37)
[2021-08-26] MEDS: Pantoprazole 40 MG VIAL IVP SCH (09:07)
[2021-08-26] MEDS: 1/2 NS w/KCL 20 mEq 1,000 ML IV SCH ×2 (09:46→13:52)
[2021-08-26 10:59] VITALS: BMI 42.2
[2021-08-26] MEDS: Dextrose 5% w/ 20 mEq KCl 1,000 ML IV SCH (16:59)
[2021-08-26 17:28] LABS: Vancomycin, Random 17.2 ug/mL (See Comment)
[2021-08-26] MEDS ORDERED: Vancomycin HCl 500 MG in Sodium Chloride 0.9% 100 ML IVPB SCH (18:15)
[2021-08-27] MEDS: Hydrocortisone Sod Succ/PF 100 mg/2 ml Vial IVP SCH ×4 (03:16→20:43)
[2021-08-27] MEDS: Meropenem 500 MG in Sodium Chloride 0.9% 100 ML IVPB SCH ×2 (03:16→15:10)
[2021-08-27] MEDS: Dextrose 5% w/ 20 mEq KCl 1,000 ML IV SCH ×3 (04:47→23:17)
[2021-08-27 05:21] LABS: Magnesium 2.4 mg/dL (1.6-2.6)
[2021-08-27] MEDS: Pantoprazole 40 MG VIAL IVP SCH (09:08)
[2021-08-27] MEDS: NPH, Human Insulin Isophane 300 UNIT/3 ML VIAL SC SCH ×2 (09:09→20:42)
[2021-08-27] MEDS: HumaLOG 300 UNITS/3 ML VIAL SC PRN (11:50)
[2021-08-27] MEDS ORDERED: BIOTENE MOUTH SPRAY 44.3 ML MM PRN (15:39)
[2021-08-27 17:37] LABS: Vancomycin, Random 14.6 ug/mL (See Comment)
[2021-08-27] MEDS ORDERED: Vancomycin HCl 500 MG in Sodium Chloride 0.9% 100 ML IVPB SCH (21:45)
[2021-08-28] MEDS: Meropenem 500 MG in Sodium Chloride 0.9% 100 ML IVPB SCH ×2 (02:46→14:35)
[2021-08-28] MEDS: Hydrocortisone Sod Succ/PF 100 mg/2 ml Vial IVP SCH ×2 (03:53→17:03)
[2021-08-28] MEDS: Pantoprazole 40 MG VIAL IVP SCH (08:15)
[2021-08-28] MEDS: NPH, Human Insulin Isophane 300 UNIT/3 ML VIAL SC SCH ×2 (08:19→22:46)
[2021-08-28 12:49] LABS: Anion Gap 12 mmol/L (10-20); BUN (Urea Nitrogen) 121 mg/dL (8.4-25.7); Calc. Creatinine Clearance 48 mL/min (70-130); Calcium 8.7 mg/dL (7.8-10.44); Carbon Dioxide 33 mmol/L (23-31); Chloride 109 mmol/L (98-107); Glucose 211 mg/dL (83-110); Potassium 3.2 mmol/L (3.5-5.1); Sodium 151 mmol/L (136-145)
[2021-08-28 12:51] LABS: Hemoglobin 10.5 g/dL (14.0-18.0); Mean Corpuscular HGB CONC 31.2 g/dL (32.0-36.0); Mean Corpuscular Hemoglobin 29.2 pg (27.0-31.0); Mean Corpuscular Volume 93.7 fL (78.0-98.0); Mean Platelet Volume 9.9 fL (7.4-10.4); Platelet Count 134 thou/uL (130-400); RBC Distribution Width 14.6 % (11.5-14.5); Red Blood Cell (RBC) Count 3.58 mill/uL (4.70-6.10); White Blood Cell (WBC) Count 10.1 thou/uL (4.8-10.8)
[2021-08-28 13:05] LABS: Band 18 % (5-11); Hypochromia SLIGHT = 6-15 cells (100X) (0-5/hpf); Lymphocytes 4 % (21-51); MDiff Complete? YES; Monocytes 3 % (0-10); Neutrophil 75 % (42-75); Platelet Morphology Comment Appears Adequate; Polychromasia SLIGHT = 2-3 cells (100X) (0-2/hpf)
[2021-08-28 14:05] LABS: Vancomycin, Random 15.9 ug/mL (See Comment)
[2021-08-28] MEDS: Dextrose 5% w/ 20 mEq KCl 1,000 ML IV SCH (17:33)
[2021-08-29] MEDS: Hydrocortisone Sod Succ/PF 100 mg/2 ml Vial IVP SCH ×2 (03:52→15:33)
[2021-08-29] MEDS: Meropenem 500 MG in Sodium Chloride 0.9% 100 ML IVPB SCH ×2 (03:52→15:06)
[2021-08-29 04:39] LABS: Anion Gap 14 mmol/L (10-20); BUN (Urea Nitrogen) 104 mg/dL (8.4-25.7); Calc. Creatinine Clearance 53 mL/min (70-130); Calcium 8.2 mg/dL (7.8-10.44); Carbon Dioxide 28 mmol/L (23-31); Chloride 110 mmol/L (98-107); Glucose 174 mg/dL (83-110); Potassium 3.3 mmol/L (3.5-5.1); Sodium 149 mmol/L (136-145)
[2021-08-29] MEDS: Dextrose 5% w/ 20 mEq KCl 1,000 ML IV SCH ×2 (06:31→21:45)
[2021-08-29] MEDS ORDERED: GUAIFENESIN SF SOLN 200 MG/10 ML UDCUP PO PRN (06:39)
[2021-08-29] MEDS ORDERED: Senokot S 8.6-50 MG TAB PO PRN (06:39)
[2021-08-29] MEDS ORDERED: Sodium Chloride 0.65% Nasal 44 ML BOT EA NARE PRN (06:39)
[2021-08-29] MEDS ORDERED: Artificial Tear Sol 15 ML BOT EA EYE PRN (06:39)
[2021-08-29] MEDS ORDERED: Ondansetron ODT 4 MG TAB SL PRN (06:39)
[2021-08-29] MEDS ORDERED: Hydrocerin (Eucerin) Cream 120 gm Jar TOP PRN (06:39)
[2021-08-29] MEDS ORDERED: Calcium Carbonate 500 MG ChewTAB PO PRN (06:39)
[2021-08-29] MEDS ORDERED: Loratadine 10 MG TAB PO PRN (06:39)
[2021-08-29] MEDS ORDERED: Cepastat Lozenges 1 LOZ PO PRN (06:39)
[2021-08-29] MEDS ORDERED: Melatonin 3 MG TAB PO PRN (06:40)
[2021-08-29] MEDS: NPH, Human Insulin Isophane 300 UNIT/3 ML VIAL SC SCH ×2 (09:15→21:48)
[2021-08-29] MEDS: HumaLOG 300 UNITS/3 ML VIAL SC PRN (09:16)
[2021-08-29] MEDS: Pantoprazole 40 MG VIAL IVP SCH (09:19)
[2021-08-29] MEDS: Morphine 4 MG/ML VIAL SLOW IVP PRN (15:33)
[2021-08-30] MEDS: Meropenem 500 MG in Sodium Chloride 0.9% 100 ML IVPB SCH ×2 (01:32→15:21)
[2021-08-30] MEDS: Hydrocortisone Sod Succ/PF 100 mg/2 ml Vial IVP SCH (04:45)
[2021-08-30] MEDS ORDERED: hydrALAZINE 20 MG/ML VIAL SLOW IVP PRN (10:37)
[2021-08-30] MEDS: Pantoprazole 40 MG VIAL IVP SCH (10:38)
[2021-08-30] MEDS: Morphine 4 MG/ML VIAL SLOW IVP PRN ×2 (10:41→15:26)
[2021-08-30] MEDS: NPH, Human Insulin Isophane 300 UNIT/3 ML VIAL SC SCH ×2 (11:36→20:39)
[2021-08-30] MEDS: Dextrose 5% w/ 20 mEq KCl 1,000 ML IV SCH (12:17)
[2021-08-30 16:49] LABS: SARS-CoV-2 PCR by NAA Not Detected (NotDetected)
[2021-08-31] MEDS: Morphine 4 MG/ML VIAL SLOW IVP PRN ×3 (00:09→21:49)
[2021-08-31] MEDS: Dextrose 5% w/ 20 mEq KCl 1,000 ML IV SCH ×2 (00:46→14:49)
[2021-08-31] MEDS: Meropenem 500 MG in Sodium Chloride 0.9% 100 ML IVPB SCH ×2 (01:42→16:13)
[2021-08-31 04:27] LABS: ALT (SGPT) 42 U/L (8-55); AST (SGOT) 124 U/L (5-34); Alkaline Phosphatase 320 U/L (40-110); Anion Gap 24 mmol/L (10-20); BUN (Urea Nitrogen) 110 mg/dL (8.4-25.7); Calc. Creatinine Clearance 40 mL/min (70-130); Calcium 8.1 mg/dL (7.8-10.44); Carbon Dioxide 18 mmol/L (23-31); Chloride 109 mmol/L (98-107); Globulin 2.5 g/dL (2.4-3.5); Glucose 151 mg/dL (83-110); Magnesium 2.3 mg/dL (1.6-2.6); Phosphorus 7.6 mg/dL (2.3-4.7); Potassium 4.2 mmol/L (3.5-5.1); Protein, Total 4.5 g/dL (5.8-8.1); Sodium 147 mmol/L (136-145)
[2021-08-31 04:36] LABS: Lactic Acid 8.6 mmol/L (0.5-2.2)
[2021-08-31 04:57] LABS: Band 28 % (5-11); Hemoglobin 10.5 g/dL (14.0-18.0); Large Platelets SLIGHT; Lymphocytes 6 % (21-51); MDiff Complete? YES; Mean Corpuscular Hemoglobin 29.5 pg (27.0-31.0); Mean Corpuscular Volume 95.2 fL (78.0-98.0); Mean Platelet Volume 10.8 fL (7.4-10.4); Monocytes 3 % (0-10); Neutrophil 63 % (42-75); Nucleated RBC 4 % (0); Platelet Count 242 thou/uL (130-400); Platelet Morphology Comment Appears Adequate; RBC Distribution Width 15.2 % (11.5-14.5); Red Blood Cell (RBC) Count 3.55 mill/uL (4.70-6.10); White Blood Cell (WBC) Count 29.6 thou/uL (4.8-10.8)
[2021-08-31 06:09] LABS: Lactic Acid 8.3 mmol/L (0.5-2.2)
[2021-08-31] MEDS ORDERED: Sodium Chloride 0.9% 500 ML IV SCH ×2 (06:45→22:30)
[2021-08-31] MEDS ORDERED: Amlodipine 5 MG TAB PO SCH (09:00)
[2021-08-31] MEDS: Pantoprazole 40 MG VIAL IVP SCH (09:06)
[2021-08-31] MEDS: NPH, Human Insulin Isophane 300 UNIT/3 ML VIAL SC SCH (09:07)
[2021-08-31 09:23] LABS: Lactic Acid 7.4 mmol/L (0.5-2.2)
[2021-08-31 19:50] VITALS: TEMP 97
[2021-09-01] MEDS: Morphine 4 MG/ML VIAL SLOW IVP PRN (00:42)
[2021-09-01 00:59] VITALS: BP 74/28
[2021-09-01] MEDS ORDERED: Scopolamine 1.5 mg/72 hour Patch TD SCH (01:00)
[2021-09-01] MEDS: Meropenem 500 MG in Sodium Chloride 0.9% 100 ML IVPB SCH (01:47)
== END 2021-09-01 08:05 | disposition expired | DRG 871 ==
LOC: ERS 10:32 → IMCU/EMU 14:23 → ERHOLD 16:49 → CCU 18:23 → ONC 08-25 18:00
PROVIDERS: ADMIT Internal Medicine; ATTEND Internal Medicine
PROC: 05HM33Z Insertion of Infusion Device into Right Internal Jugular Vein, Percutaneous Approach (ICD-10-PCS; principal; 2021-08-22)
PROC: 5A09457 Assistance with Respiratory Ventilation, 24-96 Consecutive Hours, Continuous Positive Airway Pressure (ICD-10-PCS; 2021-08-22)
PROC: 03HY32Z Insertion of Monitoring Device into Upper Artery, Percutaneous Approach (ICD-10-PCS; 2021-08-22)
PROC: B543ZZA Ultrasonography of Right Jugular Veins, Guidance (ICD-10-PCS; 2021-08-22)
PROC: 3E033XZ Introduction of Vasopressor into Peripheral Vein, Percutaneous Approach (ICD-10-PCS; 2021-08-22)
PROC: 8E0ZXY6 Isolation (ICD-10-PCS; 2021-08-22)
DX: A41.9 Sepsis, unspecified organism (principal); R65.21 Severe sepsis with septic shock; J96.01 Acute respiratory failure with hypoxia; G93.41 Metabolic encephalopathy; N17.0 Acute kidney failure with tubular necrosis; L03.311 Cellulitis of abdominal wall; N39.0 Urinary tract infection, site not specified; Z68.41 Body mass index [BMI] 40.0-44.9, adult; I48.20 Chronic atrial fibrillation, unspecified; E87.2 Acidosis; I50.32 Chronic diastolic (congestive) heart failure; I13.0 Hypertensive heart and chronic kidney disease with heart failure and stage 1 through stage 4 chronic kidney disease, or unspecified chronic kidney disease; E87.0 Hyperosmolality and hypernatremia; K57.20 Diverticulitis of large intestine with perforation and abscess without bleeding; I69.354 Hemiplegia and hemiparesis following cerebral infarction affecting left non-dominant side; Z20.822 Contact with and (suspected) exposure to COVID-19; Z66 Do not resuscitate; Z51.5 Encounter for palliative care; N18.30 Chronic kidney disease, stage 3 unspecified; E11.22 Type 2 diabetes mellitus with diabetic chronic kidney disease; E66.01 Morbid (severe) obesity due to excess calories; J44.9 Chronic obstructive pulmonary disease, unspecified; N40.1 Benign prostatic hyperplasia with lower urinary tract symptoms; R33.8 Other retention of urine; I25.10 Atherosclerotic heart disease of native coronary artery without angina pectoris; K43.2 Incisional hernia without obstruction or gangrene; I25.5 Ischemic cardiomyopathy; E11.65 Type 2 diabetes mellitus with hyperglycemia; E87.6 Hypokalemia; L89.152 Pressure ulcer of sacral region, stage 2; D63.1 Anemia in chronic kidney disease; E87.5 Hyperkalemia; E83.42 Hypomagnesemia; R45.1 Restlessness and agitation; I69.320 Aphasia following cerebral infarction; Z79.899 Other long term (current) drug therapy; Z79.84 Long term (current) use of oral hypoglycemic drugs; Z79.82 Long term (current) use of aspirin; Z90.49 Acquired absence of other specified parts of digestive tract; Z74.01 Bed confinement status; Z98.890 Other specified postprocedural states
CPT/HCPCS: 0240U; 36415; 36416; 36556; 36600; 36620; 51703; 71045; 74176; 80048; 80053; 80202; 81003; 81015; 82553; 82805; 83605; 83690; 83735; 83880; 84100; 84145; 84484; 85025; 85379; 87040; 87086; 87324; 87449; 93005; 93010; 96365; 96374; 96375; C9113; J0692; J1644; J1650; J1720; J1815; J2185; J2270; J3370; J3475; J3480; J3490; J7030; J7050; J7070; P9047; U0003; U0005